=== PATIENT | female | born 1985 | race Caucasian/White ===

== ENCOUNTER 2017-03-10 08:38 | Emergency (ER) | payer SELFPAY ==
[~2017-03-10] VITALS: Ht 162.6 cm; Wt 79.9 kg
[~2017-03-10 08:38] MED LIST: ALBU0.086 NEB; ALBU8I INH; BENA25TA8 PO; LORA-474 PO; MEDR4PAK3 PO; VENTAER INH
[2017-03-10 08:43] VITALS: BP 125/83; PULSE 79; RESP 16; TEMP 98.7; O2SAT 98
[2017-03-10] MEDS ORDERED: AMOX500C PO (09:06)
[2017-03-10] MEDS ORDERED: VENTAER INH (09:07)
[2017-03-10] MEDS ORDERED: ALBU0.08 NEB (09:07)
[2017-03-10] MEDS ORDERED: MEDR4PAK PO (09:07)
--- NOTE | 2017-03-10 09:08 | PD ---
HPI Chief Complaint: Cold / Flu Symptoms Time Seen by Provider: 08:51 Travel History International Travel<30 days: No Contact w/Intl Traveler<30days: No Traveled to known affect area: No History of Present Illness HPI This 31-year-old female is complaining of cough and congestion. She's had some sinus pressure. She has a large cavity in her left upper wisdom tooth. She's been congested and short of breath at times. She has a history of asthma is been admitted to the hospital for in the past. She had taken some amoxicillin but ran out of it a few days ago [facility] Past Medical History Asthma: Yes Anxiety: Yes Diminished Hearing: No Respiratory: Yes (asthma) Influenza Vaccination: No ?: Not LMP: 03/09/17 : 3 Para: 2 Miscarriage: 1 Past Surgical History Abdominal Surgery: Yes () Section: Yes Other Surgery: Yes (Breast aug.) Social History Alcohol Use: No Tobacco Use: Yes (1 PPD) Substance Use: No (Denies today) Allergies-Medications (Allergen,Severity, Reaction): Coded Allergies: No Known Allergies (Verified , 11/04/15) Reported Meds & Prescriptions Reported Meds & Active Scripts Active No Active Prescriptions or Reported Medications Review of Systems General / Constitutional: Positive: Chills Eyes: No: Diploplia, Blurred Vision HENT: No: Headaches, Vertigo Cardiovascular: No: Chest Pain or Discomfort Respiratory: Positive: Cough, Wheezing Gastrointestinal: No: Vomiting, Diarrhea Genitourinary: No: Urgency, Frequency Musculoskeletal: No: Myalgias, Arthralgias Skin: No Rash Neurologic: Positive: Weakness, No: Dizziness Hematologic/Lymphatic: No: Easy Bruising Physical Exam Narrative GENERAL: Well-developed female SKIN: Focused skin assessment warm/dry. HEAD: Atraumatic. Normocephalic. EYES: Pupils equal and round. No scleral icterus. No injection or drainage. ENT: No nasal bleeding or discharge. Mucous membranes pink and moist. The very large steven in the most posterior left-sided maxillary tooth NECK: Trachea midline. No JVD. CARDIOVASCULAR: Regular rate and rhythm. No murmur appreciated. RESPIRATORY: No accessory muscle use. There is scattered bilateral wheezes. Breath sounds equal bilaterally. GASTROINTESTINAL: Abdomen soft, non-tender, nondistended. Hepatic and splenic margins not palpable. MUSCULOSKELETAL: No obvious deformities. No clubbing. No cyanosis. No edema. NEUROLOGICAL: Awake and alert. No obvious cranial nerve deficits. Motor grossly within normal limits. Normal speech. PSYCHIATRIC: Appropriate mood and affect; insight and judgment normal. Data Data Last Documented VS Vital Signs Date Time Temp Pulse Resp B/P (MAP) Pulse Ox O2 Delivery O2 Flow Rate FiO2 03/10/17 08:54 98 Room Air 03/10/17 08:43 98.7 79 16 125/83 (97) [facility] Medical Decision Making Medical Screen Exam Complete: Yes Emergency Medical Condition: Yes Medical Record Reviewed: Yes Differential Diagnosis Differential includes asthma exacerbation, dental abscess, bronchitis Narrative Course Been put on amoxicillin for the tooth as well as Medrol Dosepak and albuterol Diagnosis Primary Impression: Asthma exacerbation Qualified Codes: J45.901 - Unspecified asthma with (acute) exacerbation Scripts Methylprednisolone Dosepak (Medrol Dosepak) 4 Mg Dspk 4 MG PO DIRECTED, #1 DSPK 0 Refills Per Pharmacist direction Prov: Temo Christiansen MD 03/10/17 Albuterol 18 GM Inh (Ventolin Hfa 18 GM Inh) 90 Mcg/Act Aer 2 PUFF INH Q4-6H Y for SHORTNESS OF BREATH, #1 INHALER 0 Refills Prov: Temo Christiansen MD 03/10/17 Albuterol Neb (Albuterol Neb) 2.5 Mg/3 Ml Neb 2.5 MG NEB Q4HR NEB for Breathing Treatment, #60 NEBULE 0 Refills While awake Prov: Temo Christiansen MD 03/10/17 Amoxicillin (Amoxicillin) 500 Mg Cap 500 MG PO TID for Infection for 10 Days, CAP 0 Refills Prov: Temo Christiansen MD 03/10/17 Disposition: 01 DISCHARGE HOME Condition: Stable Temo Christiansen MD Mar 10, 2017 09:08
== END 2017-03-10 09:18 | disposition home or self-care (01) ==
LOC: PHED 08:38
DX: J45.901 Unspecified asthma with (acute) exacerbation (principal); F17.200 Nicotine dependence, unspecified, uncomplicated
CPT/HCPCS: 99284